=== PATIENT | female | born 1975 | race Caucasian/White ===

== ENCOUNTER 2021-09-04 17:14 | Emergency (ER) | payer OTHER ==
[~2021-09-04] VITALS: Ht 152.4 cm; Wt 72.6 kg
[~2021-09-04 17:14] MED LIST: PREN1TAB18 PO
[2021-09-04 17:23] VITALS: BP_SYST 126
--- NOTE | 2021-09-04 21:00 | NUR ---
Called patient x 3 no answer. Patient left without being seen. No further teatment provider. ER MD aware
== END 2021-09-04 21:00 | disposition left against medical advice (07) ==
LOC: SED 17:14
DX: M25.562 Pain in left knee (principal); Z53.21 Procedure and treatment not carried out due to patient leaving prior to being seen by health care provider
CPT/HCPCS: 73564